=== PATIENT | female | born 1975 | race Caucasian/White ===

== ENCOUNTER → 2018-09-27 14:04 | Outpatient (CLI) | payer MEDICAID, SELFPAY ==
[2018-09-29 12:18] LABS: Lamotrigine (Lamictal) Level 1.9 ug/mL (2.0-20.0); Topiramate 13.9 ug/mL (2.0-25.0)
== END ==
PROVIDERS: Family Provider Family Medicine; PCP Family Medicine
DX: R56.9 Unspecified convulsions (principal)
CPT/HCPCS: 36415; 80201; 82542

== ENCOUNTER 2019-10-12 11:53 | Emergency (ER) | payer MEDICAID, SELFPAY ==
[2019-10-12 11:56] VITALS: BP 104/62; PULSE 78; RESP 17; TEMP 36.5; O2SAT 93; BMI 36.9
--- NOTE | 2019-10-12 12:10 | ED.DCSUM_ITS ---
History of Present Illness Chief Complaint: Rash Informant: Patient Narrative: Patient has had a itchy red raised rash on her arms and leg for about a month. She saw her primary care physician was given triamcinolone cream and hydroxyzine. She tells me that in 48 hours she has an appointment in [place] with dermatology. She states over the past week she is now had a rash on her right hand and burning concerns her. She states even the touch of fabric causes her great pain. She denies any changes in soaps or lotions or recent exposures. No recent illnesses. She is not diabetic. Past Medical History - Allergies and Home Meds Allergies/Adverse Reactions: Allergies haloperidol [From Haldol] Allergy (Verified 10/12/19 11:54) Unknown haloperidol lactate [From Haldol] Allergy (Verified 10/12/19 11:54) Unknown Penicillins Allergy (Verified 10/12/19 11:54) Rash tetracycline [Tetracycline] Allergy (Verified 10/12/19 11:54) Rash acetaminophen [From Tylenol-Codeine] Adverse Reaction (Verified 10/12/19 11:54) Unknown codeine phosphate [From Tylenol-Codeine] Adverse Reaction (Verified 10/12/19 11:54) Unknown felbamate [From Felbatol] Adverse Reaction (Verified 10/12/19 11:54) Unknown Primary Care Physician: Jose Whittaker MD [Primary Care Provider] - Surgical History: no surgical history Smoking Status: Never smoker Review of Systems General: Denies: Chills, Fever, Sweats Eyes: Denies: Visual changes - bilaterally, Diplopia ENT: Denies: Rhinorrhea, Sore throat Cardiovascular: Denies: Chest pain, Palpitations Respiratory: Denies: Dyspnea, Cough, Dyspnea on exertion Gastrointestinal: Denies: Abdominal pain, Nausea, Vomiting, Diarrhea, Melena, Hematochezia Genitourinary: Denies: Dysuria, Hematuria, Frequency Musculoskeletal: Denies: Back pain, Extremity Pain Skin: Reports: Rash. Denies: Abscess, Abrasions, Wounds Neurological: Denies: Headache, Weakness, Numbness Physical Exam Vital Signs/Narrative: Vital Signs Temp Pulse Resp BP Pulse Ox 10/12/19 11:56 97.7 F L 78 17 104/62 93 Inital Vital Signs reviewed: Yes General: Well nourished, Well developed, No Acute Distress Head: Normocephalic, Atraumatic Eyes: Perrl, EOMI ENT: Moist mucous membranes, No rhinorrhea Neck: Supple, Nontender Cardiovascular: Regular rate, Regular rhythm, No murmurs Respiratory: No distress, CTA bilaterally, Chest nontender Abdomen: Soft, Nontender, Nondistended, Normal bowel sounds Back: Nontender, Normal Inspection Extremities: Nontender, No edema Skin: Normal color, Rash - Patient has a discrete red blanching round slightly raised lesions of the arms and hands and right leg. Some are excoriated. Each lesion is approximately 1 to 4 mm in diameter. There is no vesicular appearance to them. There is no pustular appearance. Neurological: Alert, Oriented x3, Cranial nerves II-XII grossly intact, Normal Strength, Normal Sensation Psychological: Normal affect, Normal Mood Diagnostic/Tx/Re-eval - Medical Decision Making I explained to the patient that I cannot be certain of the etiology of this rash. We can try some systemic corticosteroids. 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 I do not believe that this rash represents any of the life-threatening rashes that need to be admitted. ED Disposition - Plan for ED Patient: Disposition: Home or Assisted Living Diagnosis: Rash Instructions: Self-Care for Skin Rashes Prescriptions: Prednisone 10 mg PO DAILY #63 tab Prescription Printed Additional Instructions: Follow-up with dermatology as scheduled
== END 2019-10-12 12:39 | disposition home or self-care (01) ==
PROVIDERS: Emergency Provider Emergency Medicine; PCP Family Medicine
DX: R21 Rash and other nonspecific skin eruption (principal)
CPT/HCPCS: 99282